=== PATIENT | male | born 1965 | race Two or more races ===

== ENCOUNTER 2017-08-06 11:07 | Emergency (ER) | payer OTHER ==
[~2017-08-06] VITALS: Ht 180.3 cm; Wt 106.3 kg
[2017-08-06 11:12] VITALS: Ht 180.3 cm; Wt 106.3 kg
[2017-08-06 12:18] VITALS: BP 177/97
== END 2017-08-06 12:18 | disposition home or self-care (01) ==
LOC: ED 11:07
DX: M62.830 Muscle spasm of back (principal); M54.9 Dorsalgia, unspecified; Z88.0 Allergy status to penicillin
CPT/HCPCS: 20552; J2001

== ENCOUNTER 2018-05-23 10:22 | Emergency (ER) | payer OTHER ==
[~2018-05-23] VITALS: Ht 180.3 cm; Wt 125.2 kg
[2018-05-23 10:28] VITALS: BP 195/145; Ht 180.3 cm; Wt 125.2 kg
== END 2018-05-23 12:25 | disposition home or self-care (01) ==
LOC: ED 10:22
DX: S52.125A Nondisplaced fracture of head of left radius, initial encounter for closed fracture (principal); S43.015A Anterior dislocation of left humerus, initial encounter; V87.8XXA Person injured in other specified noncollision transport accidents involving motor vehicle (traffic), initial encounter; Y93.55 Activity, bike riding; Y92.413 State road as the place of occurrence of the external cause; Y99.2 Volunteer activity
CPT/HCPCS: J1885